=== PATIENT | male | born 1980 | race Two or more races ===

== ENCOUNTER 2024-02-26 10:36 | Emergency (ER) | payer OTHER ==
[~2024-02-26] VITALS: Ht 144.8 cm; Wt 56.7 kg
[2024-02-26 10:46] VITALS: BP 131/81; PULSE 132; RESP 20; TEMP 100; O2SAT 98
[2024-02-26] MEDS: ACETAMINOPHEN 325 MG TAB PO ONE (11:25)
[2024-02-26] MEDS: ACYCLOVIR 200 MG CAP PO ONE (11:25)
[2024-02-26] MEDS: KETOROLAC 30 MG/ML VIAL IM ONE (11:26)
[2024-02-26 12:34] VITALS: BP 109/73; PULSE 113; RESP 20; TEMP 98.7; O2SAT 98
[2024-02-26] MEDS ORDERED: IBUP-2218 PO (12:49)
[2024-02-26] MEDS ORDERED: HYDR-5071 PO (12:49)
[2024-02-26] MEDS ORDERED: GABA100C PO (12:50)
[2024-02-26] MEDS ORDERED: ACYC-278 PO (12:50)
[2024-02-26] MEDS ORDERED: DIPH25TA53 PO (12:50)
== END 2024-02-26 13:00 | disposition home or self-care (01) ==
LOC: MED 10:36
DX: B02.9 Zoster without complications (principal); R03.0 Elevated blood-pressure reading, without diagnosis of hypertension; Z79.1 Long term (current) use of non-steroidal anti-inflammatories (NSAID); Z79.899 Other long term (current) drug therapy
CPT/HCPCS: 96372; 99284; J1885; Q0163

== ENCOUNTER 2024-06-11 19:43 | Emergency (ER) | payer OTHER ==
[~2024-06-11] VITALS: Ht 160 cm; Wt 66.2 kg
[~2024-06-11 19:43] MED LIST: ACYC-278 PO; DIPH25TA53 PO; GABA100C PO; HYDR-5071 PO; IBUP-2218 PO
[2024-06-11 19:48] VITALS: BP 133/82; PULSE 68; RESP 19; TEMP 98; O2SAT 98
[2024-06-11 22:35] VITALS: BP 138/86; PULSE 72; RESP 20; TEMP 98.2; O2SAT 98
[2024-06-11] MEDS: LIDOCAINE/EPI 1% 1:100000 20 ML VIAL INJ ONE (23:06)
== END 2024-06-11 23:49 | disposition home or self-care (01) ==
LOC: MED 19:43
DX: S81.812A Laceration without foreign body, left lower leg, initial encounter (principal); Z79.1 Long term (current) use of non-steroidal anti-inflammatories (NSAID); Z79.899 Other long term (current) drug therapy; V87.8XXA Person injured in other specified noncollision transport accidents involving motor vehicle (traffic), initial encounter; Y93.89 Activity, other specified; Y92.89 Other specified places as the place of occurrence of the external cause; Y99.8 Other external cause status
CPT/HCPCS: 12002; 73590; 90715; 99283; J2001

== ENCOUNTER 2024-06-22 08:47 | Emergency (ER) | payer OTHER ==
[~2024-06-22] VITALS: Ht 152.4 cm; Wt 66.7 kg
[2024-06-22 08:52] VITALS: BP 127/76; PULSE 75; RESP 15; TEMP 97.9; O2SAT 98
[2024-06-22] MEDS ORDERED: BACI-105 TP (09:33)
[2024-06-22 13:10] VITALS: BP 127/76; PULSE 75; RESP 15; TEMP 97.9; O2SAT 98
== END 2024-06-22 09:49 | disposition home or self-care (01) ==
LOC: MED 08:47
DX: S81.812D Laceration without foreign body, left lower leg, subsequent encounter (principal); Z48.00 Encounter for change or removal of nonsurgical wound dressing; Z79.899 Other long term (current) drug therapy; X58.XXXD Exposure to other specified factors, subsequent encounter
CPT/HCPCS: 99281; 99283

== ENCOUNTER 2024-07-02 06:10 | Emergency (ER) | payer OTHER ==
[~2024-07-02] VITALS: Ht 172.7 cm; Wt 72.6 kg
[~2024-07-02 06:10] MED LIST changes: +BACI-105 TP
[2024-07-02 06:23] VITALS: BP 125/70; PULSE 98; RESP 16; TEMP 98.7; O2SAT 98
--- NOTE | 2024-07-02 06:30 | NUR ---
PT TAKEN TO BED 2
[2024-07-02] MEDS ORDERED: PROCHLORPERAZINE 10 MG/2 ML VIAL IVP ONE (06:40)
[2024-07-02] MEDS ORDERED: KETOROLAC 30 MG/ML VIAL IVP ONE (06:40)
[2024-07-02] MEDS ORDERED: NACL 0.9% 2,000 ML IV ONE (06:40)
[2024-07-02] MEDS ORDERED: diphenhydrAMINE 50 MG/ML VIAL IVP ONE (06:40)
--- NOTE | 2024-07-02 06:40 | NUR ---
43M C/O HEAD ACHE FOR 6 DAYS. STATES HEADACHE IS PREVENTING HIM FROM SLEEPING, HAS NOT TAKEN MEDICATION FOR HEADACHE RELIEF AT HOME. STATES GETS HEADACHES OFTEN, DENIES N/V. SAFETY MEASURES IN PLACE. PMHX INSOMNIA NKA
[2024-07-02] MEDS ORDERED: KETOROLAC 30 MG/ML VIAL IM ONE (07:05)
[2024-07-02 07:08] LABS: BASOPHILS # (AUTO) 0.1 K/uL (0.00-0.22); BASOPHILS % (AUTO) 0.6 % (0.0-2.0); EOSINOPHILS % (AUTO) 0.1 % (0.0-4.0); HEMATOCRIT 42.2 % (36-52); HEMOGLOBIN 14.4 g/dL (12.0-18.0); LYMPHOCYTES # (AUTO) 1.4 K/uL (2.0-11.5); LYMPHOCYTES % (AUTO) 12.6 % (20.5-51.1); MEAN CORPUSCULAR HEMOGLOBIN 31 pg (27-31); MEAN CORPUSCULAR HGB CONC 34 g/dL (33-37); MEAN CORPUSCULAR VOLUME 91.5 fL (80-94); MONOCYTES # (AUTO) 0.9 K/uL (0.8-1.0); MONOCYTES % (AUTO) 7.5 % (1.7-9.3); NEUTROPHILS # (AUTO) 9.1 K/uL (1.8-7.7); NEUTROPHILS % (AUTO) 79.2 % (42.2-75.2); PLATELET COUNT (AUTO) 167 K/uL (140-450); RED BLOOD CELL COUNT(AUTO) 4.61 MIL/uL (4.20-6.10); RED CELL DISTRIBUTION WIDTH 12.8 % (11.6-13.7); WHITE BLOOD COUNT (AUTO) 11.4 K/uL (4.8-10.8)
[2024-07-02 07:15] LABS: ANION GAP 15.8 (8-16); CALCIUM 9.1 mg/dL (8.5-10.1); CARBON DIOXIDE 25.6 mmol/L (21-32); CREATININE 0.9 mg/dL (0.6-1.3); POTASSIUM 3.4 mmol/L (3.5-5.1)
[2024-07-02] MEDS: ACETAMINOPHEN EXTRA STRENGTH 500 MG TAB PO ONE (07:20)
[2024-07-02] MEDS: PROCHLORPERAZINE 10 MG/2 ML VIAL IM ONE (07:22)
--- NOTE | 2024-07-02 07:29 | NUR ---
Pt report given to Dottie ALEXANDRE. Transfer of care at this time.
--- NOTE | 2024-07-02 07:30 | NUR ---
RECEIVED REPORT FROM ZORAIDA DRISCOLL; PT IS A 43M C/O HEAD ACHE FOR 6 DAYS. STATES HEADACHE IS PREVENTING HIM FROM SLEEPING, HAS NOT TAKEN MEDICATION FOR HEADACHE RELIEF AT HOME. STATES GETS HEADACHES OFTEN, DENIES N/V. SAFETY MEASURES IN PLACE. URINE SAMPLE OBTAINED. PMHX INSOMNIA NKA
[2024-07-02 08:59] LABS: APPEARANCE,URINE CLEAR (CLEAR); BILIRUBIN,URINE NEGATIVE (NEGATIVE); BLOOD, URINE NEGATIVE (NEGATIVE); COLOR,URINE YELLOW (YELLOW); LEUKOCYTE ESTERASE ,URINE NEGATIVE (NEGATIVE); NITRITE, URINE NEGATIVE (NEGATIVE); PROTEIN,URINE NEGATIVE (NEGATIVE); UGLUCOSE NEGATIVE (NEGATIVE); UROBILINOGEN,URINE 0.2 EU/dL (0.2 - 1)
[2024-07-02 09:09] LABS: AMPHETAMINE, URINE POSITIVE ng/ml (NEG <=1000); BARBITURATE, URINE NEGATIVE ng/ml (NEG <=200); BENZODIAZEPINE, URINE NEGATIVE ng/mL (NEG <=200); CANNABINOID, URINE NEGATIVE ng/mL (NEG <=50); COCAINE, URINE NEGATIVE ng/mL (NEG <=300); OPIATE, URINE NEGATIVE ng/mL (NEG <=2000); PHENCYCLIDINE SCREEN,URINE NEGATIVE ng/mL (NEG <=25)
--- NOTE | 2024-07-02 09:49 | NUR ---
Pt is not presenting signs of tachycardia at this time. Pts pulse 101. Patient discharged with v/s stable. Written and verbal after care instructions given and explained. Patient verbalized understanding. Ambulatory with steady gait. All questions addressed prior to discharge. Advised to follow up with PMD.
[2024-07-02 09:50] VITALS: BP 135/85; PULSE 101; RESP 17; TEMP 98.7; O2SAT 97
--- NOTE | 2024-07-02 10:01 | NUR ---
Chart checked and completed. The patient's care was reviewed and supervised by LIBBY JOSÉ RN.
== END 2024-07-02 09:49 | disposition home or self-care (01) ==
LOC: MED 06:10
DX: R51.9 Headache, unspecified (principal); F15.90 Other stimulant use, unspecified, uncomplicated; E86.0 Dehydration; Z79.899 Other long term (current) drug therapy
CPT/HCPCS: 36415; 70450; 80048; 80305; 81003; 85025; 93005; 96372; 99285; J0780; Q0163

== ENCOUNTER 2024-07-17 08:18 | Emergency (ER) | payer OTHER ==
[~2024-07-17] VITALS: Ht 157.5 cm; Wt 63.5 kg
[2024-07-17 08:28] VITALS: BP 134/80; PULSE 76; RESP 16; TEMP 97.7; O2SAT 98
[2024-07-17] MEDS: ONDANSETRON 4 MG ODT PO ONE (09:13)
[2024-07-17] MEDS ORDERED: MELO-176 PO (09:16)
[2024-07-17] MEDS ORDERED: ONDA-188 SL (09:16)
[2024-07-17] MEDS ORDERED: HYDR12.51 PO (09:16)
[2024-07-17] MEDS: KETOROLAC 60 MG/2 ML VIAL IM ONE (09:17)
[2024-07-17 09:24] VITALS: BP 134/80; PULSE 76; RESP 16; TEMP 97.7; O2SAT 98
== END 2024-07-17 09:24 | disposition home or self-care (01) ==
LOC: MED 08:18
DX: R51.9 Headache, unspecified (principal); Z79.899 Other long term (current) drug therapy
CPT/HCPCS: 99283; Q0162; J1885